=== PATIENT | female | born 1990 | race Caucasian/White ===

== ENCOUNTER 2018-01-26 12:37 | Emergency (ER) | payer BC ==
[2018-01-26] MEDS ORDERED: Ondansetron ODT 8 MG TAB ONE (13:29)
[2018-01-26 13:37] LABS: #Lymphocytes 0.4 thou/uL (1.20-3.40); #Monocytes 0.5 thou/uL (0.11-0.59); #Neutrophils 10.7 thou/uL (1.40-6.50); %Eosinophils 0.2 % (0.0-10.0); %Lymphocytes 3.2 % (21.0-51.0); %Monocytes 4.4 % (0.0-10.0); %Neutrophils 92.3 % (42.0-75.0); Hemoglobin 17.4 g/dL (12.0-16.0); Mean Corpuscular Hemoglobin 34.6 pg (27.0-31.0); Mean Platelet Volume 7.7 fL (7.4-10.4); Platelet Count 284 thou/uL (130-400); RBC Distribution Width 12.2 % (11.5-14.5); Red Blood Cell (RBC) Count 5.02 mill/uL (4.20-5.40); White Blood Cell (WBC) Count 11.6 thou/uL (4.8-10.8)
[2018-01-26 14:00] LABS: ALT (SGPT) 15 U/L (8-55); AST (SGOT) 29 U/L (5-34); Albumin 4.5 g/dL (3.5-5.0); Alkaline Phosphatase 60 U/L (40-150); Anion Gap 16 mmol/L (10-20); BUN (Urea Nitrogen) 13 mg/dL (7.0-18.7); Bilirubin, Total 0.9 mg/dL (0.2-1.2); Calc. Creatinine Clearance 0 mL/min (70-130); Carbon Dioxide 22 mmol/L (22-29); Chloride 105 mmol/L (98-107); Estimated GFR-MDRD 71; Globulin 4.3 g/dL (2.4-3.5); Glucose 108 mg/dL (70-105); Lipase 18 U/L (8-78); Potassium 4.8 mmol/L (3.5-5.1); Protein, Total 8.8 g/dL (6.0-8.3); Sodium 138 mmol/L (136-145)
[2018-01-26 14:37] LABS: Bilirubin Small (Negative); Blood, Urine Negative (Negative); Clarity CLOUDY (Clear); Glucose, Urine (Dipstick) Negative (Negative); Leukocyte Small (Negative); Nitrite Negative (Negative); Protein, Urine (Dipstick) Trace mg/dL (Neg-Trace); Specific Gravity, Urine 1.031 (1.002-1.036); Urobilinogen 0.2 mg/dL (0.2-1.0); pH, Urine 5.5 (5.0-9.0)
[2018-01-26 14:40] LABS: Bacteria/HPF 2+ HPF (None Seen); Pregnancy Test - Urine (BHCG) Negative (Negative); Pregu Control Background? CLEAR/WHITE (CLR/WHITE); Pregu Control Bar Appear? YES (CONTROL BAR); Specific Gravity 1.031 (1.002-1.036)
[2018-01-26 14:41] LABS: Pathc Cast-AUWi Flag 2.61 (0-2.49)
[2018-01-26] MEDS ORDERED: Dexamethasone 10 MG/ML VIAL ONE ×2 (14:44→15:24)
[2018-01-26] MEDS ORDERED: Metoclopramide HCl 10 MG/2 ML VIAL ONE (14:46)
[2018-01-26] MEDS ORDERED: Promethazine 25 MG TAB ONE (14:48)
[2018-01-26 14:51] LABS: RBC/HPF 0-3 HPF (0-3)
[2018-01-26 14:52] LABS: Hyaline Casts/LPF 0-3 HYALINE CAST LPF (0-3 Hyaline); Other Casts/LPF None Seen LPF (0-3 Hyaline)
--- NOTE | 2018-01-26 15:57 | CT ---
ABDOMEN AND PELVIC CT SCAN WITH IV CONTRAST: HISTORY: Abdominal pain. History of Crohn's disease. FINDINGS: Lung bases are clear. The liver, gallbladder, pancreas, spleen, and adrenal glands are unremarkable. There is a small hiatal hernia. There is some minimal free intraperitoneal fluid overlying the alfie er and in the subhepatic space as well as in the pelvis. There are abnormally dilated loops of small bowel, particularly in the mid small bowel with some air and fluid levels. There is a long segment of abnormal distal ileal bowel wall thickening and enhancement, certainly evidence for Crohn's diseas e. This extends up to the level of the terminal ileum. No CT evidence for acute appendicitis. The visualized colon appears unremarkable. No evidence for abscess or perforation identified. IMPRESSION: Evidence for Crohn's disease involving a long segment of the distal ileum with proximal small bowel o bstruction without evidence for abscess or perforation. No CT evidence for acute appendicitis. Free intraperitoneal fluid within the pelvis, and subhepatic space, and overlying the liver. Small hiata l hernia. No renal calculus or obstruction. The uterus appears unremarkable. Adnexa are somewha t obscured by the dilated abnormal small bowel. POS: [facility]
[2018-01-26] MEDS ORDERED: ISOVUE-370 76%-LOCM 1 ML ONE (16:40)
== END 2018-01-26 16:01 | disposition home or self-care (01) ==
LOC: ERS 12:37
DX: K50.90 Crohn's disease, unspecified, without complications (principal); F41.9 Anxiety disorder, unspecified; F32.9 Major depressive disorder, single episode, unspecified; Z79.899 Other long term (current) drug therapy
CPT/HCPCS: 74177; 80053; 81003; 81015; 81025; 83690; 85025; 96361; 96374; 96375; 96376; J1100; J2270; J2765

== ENCOUNTER 2018-08-01 08:58 | Outpatient (CLI) | payer BC ==
[2018-08-01 10:15] LABS: BHCG - Serum Negative (NEGATIVE); Pregs Control Background? CLEAR/WHITE (CLR/WHITE); Pregs Control Bar Appear? YES (CONTROL BAR)
--- NOTE | 2018-08-01 13:59 | CT ---
CT ABDOMEN AND PELVIS WITH AND WITHOUT CONTRAST: Date: 08/01/18 HISTORY: K50.9 Crohn's disease of small bowel. COMPARISON: CT dated 01/26/18. FINDINGS: Lung bases are clear. No pericardial effusion. On the noncontrast portion of the examination, there is no nephroureterolithiasis or hydroureteroneph rosis. No secondary evidence of a recently passed stone. There has been marked interval improvement of the mucosal hyperenhancement relative to the comparison examination. There are two areas of stricturing of the distal ileum which are similar to the compari son examination. On axial image 515 is a stricture measuring 36 mm with a proximal hyperdense indwell ing object which may represent an ingested pill. Distal to this is another 3 cm stricture. Length of this stricture is similar to the comparison examination. No areas of mucosal hyperenhancement to suggest active current Crohn's disease. There is no dilatatio n of the large bowel. The aortoiliac contour is nonaneurysmal. The liver, gallbladder, kidneys, adren al glands, and spleen are all unremarkable. The skeleton is unremarkable. No evidence of penetrating disease or mesenteric inflammation. No perianal abscess is appreciated. IMPRESSION: Two separate areas of disease of the distal ileum with strictures. No active acute hyperenhancement t o suggest active inflammation. No penetrating complications, perianal disease, or perianal fistula. N o evidence of extraintestinal complications. POS: [facility]
== END 2018-08-01 08:59 | disposition home or self-care (01) ==
LOC: CT 08:58
PROVIDERS: ATTEND Internal Medicine Gastroenterology
DX: K50.00 Crohn's disease of small intestine without complications (principal); K56.699 Other intestinal obstruction unspecified as to partial versus complete obstruction
CPT/HCPCS: 36415; 74178; 84703